=== PATIENT | male | born 1985 | race Caucasian/White ===

== ENCOUNTER 2020-11-09 16:46 | Emergency (ER) | payer BC ==
[~2020-11-09 16:46] MED LIST: ASPIRIN325 MG PO; CLARITIN 10MG T10 MG PO; COMBIVENT0.074 GM/I INH; ESOMEPRAZOLE MA40 MG PO; LEVAQUIN500 MG PO; POTASSIUM CHLO20 ME1 PO; SINGULAIR10 MG PO
[2020-11-09 19:53] LABS: HEMOGLOBIN 16.1 gm/dl (14.0-17.5); RED BLOOD COUNT 5.53 M/UL (4.20-5.50); WHITE BLOOD COUNT 3.8 K/UL (4.5-11.0)
[2020-11-09 20:15] LABS: BUN/CREATININE RATIO 14 (0-10)
== END 2020-11-10 00:10 | disposition home or self-care (01) ==
LOC: ER1 16:46
PROVIDERS: Internal Medicine
DX: U07.1 COVID-19 (principal); I11.9 Hypertensive heart disease without heart failure; E66.9 Obesity, unspecified
CPT/HCPCS: 36600; 71045; 80053; 82803; 85025; 93005; 99285; M0239; U0002

== ENCOUNTER 2021-07-17 17:06 | Emergency (ER) | payer BC ==
[2021-07-17 18:00] LABS: HEMOGLOBIN 16.7 gm/dl (14.0-17.5); RED BLOOD COUNT 5.54 M/UL (4.20-5.50); WHITE BLOOD COUNT 8.3 K/UL (4.5-11.0)
[2021-07-17 18:32] LABS: BUN/CREATININE RATIO 17 (0-10)
[2021-07-17] MEDS ORDERED: ENDOCET 5-3251 EACH PO (22:07)
[2021-07-17] MEDS ORDERED: BACTRIM DS TAB1 EACH PO (22:31)
[2021-07-17] MEDS ORDERED: METRONIDAZOLE500 MG PO (22:31)
== END 2021-07-17 22:55 | disposition home or self-care (01) ==
LOC: ER1 17:06
PROVIDERS: Emergency Medicine; Nurse Practitioner
DX: K57.32 Diverticulitis of large intestine without perforation or abscess without bleeding (principal); Z88.0 Allergy status to penicillin
CPT/HCPCS: 80053; 80307; 81001; 83605; 83690; 85025; 86140; 93005; 96374; 96375; 99284; G0480; J2270; J2405; Q9967